=== PATIENT | female | born 1990 | race Two or more races ===

== ENCOUNTER 2018-04-08 00:36 | Emergency (ER) | payer MEDICAID ==
[~2018-04-08] VITALS: Ht 167.6 cm; Wt 61.2 kg
[2018-04-08 00:44] VITALS: BP 150/99
--- NOTE | 2018-04-08 01:02 | NUR ---
Pt BIBRA c/o anxiety/panic attack after arguing with boyfriend out on the street. Per pt statement smokes heroin everyday to help with her endometriosis. Pt stated that she smoked heroin earlier today. Pt is actively crying in bed, saying that she is stressed out and having problem with her boyfriend. Tried to get more detailed information from the pt but pt is unable to give full details due to her crying. Will continue to monitor pt for safety.
--- NOTE | 2018-04-08 01:06 | NUR ---
URINE COLLECTED. CALLED LAB FOR [facility]IL [facility]IN[facility]ER.
--- NOTE | 2018-04-08 01:28 | NUR ---
under ER observation at this time. VS: bp 136/83, p 67, O2 100% on RA, R 23, T 97.9F
== END 2018-04-08 01:55 | disposition home or self-care (01) ==
LOC: ER 00:41
DX: F19.10 Other psychoactive substance abuse, uncomplicated (principal); F41.9 Anxiety disorder, unspecified; Z87.42 Personal history of other diseases of the female genital tract
CPT/HCPCS: 80305; A4606; Z7610

== ENCOUNTER 2019-01-15 00:51 | Emergency (ER) | payer MEDICAID, OTHER ==
--- NOTE | 2019-01-15 01:09 | NUR ---
CALLED IN [facility], NO ANSWER.
--- NOTE | 2019-01-15 01:29 | NUR ---
PER REGISTRATION PATIENT LEFT.
== END 2019-01-15 01:32 | disposition left against medical advice (07) ==
LOC: ER 01:00
DX: Z53.21 Procedure and treatment not carried out due to patient leaving prior to being seen by health care provider (principal)